=== PATIENT | male | born 1990 | race Caucasian/White ===

== ENCOUNTER 2021-05-17 12:22 | Emergency (ER) | payer OTHER ==
[2021-05-17] MEDS ORDERED: NAPROSYN500 MG PO (14:15)
== END 2021-05-17 14:28 | disposition home or self-care (01) ==
LOC: ER1 12:22
DX: M23.92 Unspecified internal derangement of left knee (principal); M25.462 Effusion, left knee
CPT/HCPCS: 73562; 99283